=== PATIENT | male | born 1935 | race Caucasian/White ===

== ENCOUNTER 2020-07-21 05:43 | Emergency (ER) | payer MEDICARE, BC ==
[2020-07-21] MEDS ORDERED: fentaNYL 100 MCG/2 ML SDV IVPUSH ONE (07:11)
--- NOTE | 2020-07-21 07:16 | EDM.PDOC ---
ED HPI GENERAL MEDICAL PROBLEM - General Chief Complaint: General Stated Complaint: FALL VIA NORTH Time Seen by Provider: 07/21/20 07:07 Source of Information: Reports: Patient, Provider, RN Notes Reviewed History Limitations: Reports: No Limitations - History of Present Illness INITIAL COMMENTS - FREE TEXT/NARRATIVE: 85-year-old gentleman presents emergency department day via EMS he is a resident of [facility] facility fell while going to the bathroom with up hitting his head he is anticoagulated he is complaining of headache he has abrasions on his left wrist and right knee denies any loss of consciousness no nausea or vomiting Left Hand Pain Score (Numeric/FACES): 8 - Related Data Allergies Allergy/AdvReac Type Severity Reaction Status Date / Time bisacodyl [From PEG-Prep] Allergy Swelling Verified 07/21/20 06:00 hydrocortisone Allergy Syncope Verified 07/21/20 06:00 lisinopril Allergy Swelling Verified 07/21/20 05:58 methylprednisolone Allergy Cannot Verified 07/21/20 06:00 [From Depo-Medrol] Remember polyethylene glycol 3350 Allergy Swelling Verified 07/21/20 06:00 [From PEG-Prep] potassium chloride Allergy Swelling Verified 07/21/20 06:00 [From PEG-Prep] sodium bicarbonate Allergy Swelling Verified 07/21/20 06:00 [From PEG-Prep] sodium chloride Allergy Swelling Verified 07/21/20 06:00 [From PEG-Prep] Home Meds: Home Meds Acetaminophen [Tylenol] 650 mg PO Q4H PRN 07/21/20 [History] Acetaminophen/oxyCODONE [Percocet 325-5 MG] 1 tab PO Q6H PRN 07/21/20 [History] Albuterol [Proventil Neb Soln] 2.5 mg .XX Q4H PRN 07/21/20 [History] Calcium Carbonate/Vitamin D3 [Calcium Carbonate/Vitamin D 600 MG-200 Unit] 1 tab PO DAILY 07/21/20 [History] Docusate Sodium [Colace] 100 mg PO BID 07/21/20 [History] FLUoxetine [PROzac] 10 mg PO DAILY 07/21/20 [History] Insulin Glarg,Human.Rec.Analog [Lantus Solostar] 12 units SQ BEDTIME 07/21/20 [History] Insulin Lispro [Humalog] 2 unit SQ QID 07/21/20 [History] Isosorbide Mononitrate [Imdur] 60 mg PO DAILY 07/21/20 [History] Ketoconazole [Ketoconazole 2%] 1 applic TOP BID 07/21/20 [History] Latanoprost [Xalatan] 1 drop TOP BEDTIME 07/21/20 [History] Loperamide [Imodium] 2 mg PO Q6H PRN 07/21/20 [History] Magnesium Hydroxide [Milk of Magnesia] 30 mg PO ASDIRECTED PRN 07/21/20 [History] Nitroglycerin 0.4 mg PO ASDIRECTED PRN 07/21/20 [History] Nystatin [Mycostatin] 5 ml PO BID 07/21/20 [History] Nystatin [Nyamyc] 1 dose TOP ASDIRECTED 07/21/20 [History] Pantoprazole [ProTONIX] 40 mg PO DAILY 07/21/20 [History] Simvastatin 40 mg PO BEDTIME 07/21/20 [History] Torsemide 20 mg PO DAILY 07/21/20 [History] Warfarin [Coumadin] 0 mg PO DAILY 07/21/20 [History] carvediloL [Carvedilol] 25 mg PO BID 07/21/20 [History] polyethylene glycoL 3350 [Polyethylene Glycol 3350] 1 dose PO DAILY PRN 07/21/20 [History] rOPINIRole [Requip] 0.5 mg PO BID 07/21/20 [History] Past Medical History HEENT History: Reports: Impaired Vision Cardiovascular History: Reports: Afib, Heart Murmur, High Cholesterol, Hypertension, Other (See Below) Other Cardiovascular History: atherosclerosis PVD Gastrointestinal History: Reports: Other (See Below) Other Gastrointestinal History: gastritis esophageal stricture Genitourinary History: Reports: Prostate Disorder, Renal Disease Musculoskeletal History: Reports: Gout, Osteoarthritis Neurological History: Reports: Parkinson's, Other (See Below) Other Neuro History: polyneuropathy mild cognitive impairment. Endocrine/Metabolic History: Reports: Diabetes, Type II, Other (See Below) Other Endocrine/Metabolic History: parkinsonism Oncologic (Cancer) History: Reports: Prostate, Renal - Past Surgical History HEENT Surgical History: Reports: Cataract Surgery Cardiovascular Surgical History: Reports: Vascular Surgery, Other (See Below) GI Surgical History: Reports: Appendectomy, Other (See Below) Other GI Surgeries/Procedures: heart stint Male Surgical History: Reports: Nephrectomy, Other (See Below) Other Male Surgeries/Procedures: Kidney CA l kidney removed prostate CA prostate removed Dermatological Surgical History: Reports: Other (See Below) Social & Family History - Tobacco Use Tobacco Use Status *Q: Never Tobacco User Second Hand Smoke Exposure: No - Caffeine Use Caffeine Use: Reports: None - Alcohol Use Days Per Week of Alcohol Use: 1 Number of Drinks Per Day: 1 Total Drinks Per Week: 1 - Recreational Drug Use Recreational Drug Use: No ED ROS GENERAL - Review of Systems Review Of Systems: See Below Constitutional: Reports: No Symptoms HEENT: Reports: Other (Facial trauma) Respiratory: Reports: No Symptoms Cardiovascular: Reports: No Symptoms GI/Abdominal: Reports: No Symptoms : Reports: No Symptoms Musculoskeletal: Reports: No Symptoms Skin: Reports: Wound ED EXAM, GENERAL - Physical Exam Exam: See Below Free Text/Narrative:: Primary survey GCS 15 airways open patent and clear lungs are clear to auscultation bilaterally cardiovascular demonstrates regular rate and rhythm S1- S2 Secondary survey general: Elderly male GCS 15, alert and oriented x3 HEENT: head is bruising small lacerations appreciated forehead nose normocephalic, eyes pupils equal round reactive to light, sclera clear no conjunctivitis appreciated extraocular eye movements intact. Ears tympanic membranes clear and moses landmarks and light reflex are present bilaterally canals are clear. Nose no septal deviation, nares are clear, no blood present. Mouth mucosa is moist and pink no erythema or exudate noted in soft palate, tongue is midline uvula is midline, dentition is intact. Neck: Cervical collar in place Lungs: clear to auscultation bilaterally with symmetrical respirations, no adventitious noise appreciated. CV: Regular rate and rhythm S1 and S2 appreciated no murmurs rubs or gallops noted. Abdomen: Soft, nontender, no palpable masses or organomegaly appreciated, no distention no guarding bowel sounds are present, [scars ]. Neuro: Cranial nerves II through XII grossly intact Skin: Abrasion is appreciated on the right knee there is a skin tear noted on the left wrist, small wound with laceration right forehead small laceration right side of nose Extremities: No lower extremity edema appreciated, no tenderness pelvic rocks knees ankles bilaterally, shoulders elbows bilaterally, there is some tenderness to the left wrist right wrist is nontender. Exam Limited By: No Limitations General Appearance: Alert, WD/WN, No Apparent Distress ED GENERAL MEDICAL PROCEDURES - Laceration/Wound Repair Face Lac/wound length in cm: 0.5 Appearance: Superficial Distal NVT: Neuro & Vascular Intact, No Tendon Injury Skin Prep: Saline Saline irrigation (cc's): 20 Exploration/Debridement/Repair: Wound Explored, In a Bloodless Field, Explored to Base Closed with: Dermabond Sterile Dressing Applied: None Tetanus Status Addressed: Yes Complications: No Nose Lac/wound length in cm: 0.5 Appearance: Superficial Distal NVT: Neuro & Vascular Intact, No Tendon Injury Saline irrigation (cc's): 30 Exploration/Debridement/Repair: Wound Explored, In a Bloodless Field, Explored to Base Closed with: Dermabond Sterile Dressing Applied: None Tetanus Status Addressed: Yes Complications: No Course - Vital Signs Last Recorded V/S: Last Vital Signs Temp 97 F 07/21/20 05:51 Pulse 72 07/21/20 08:27 Resp 16 07/21/20 07:57 BP 92/63 07/21/20 08:29 Pulse Ox 97 07/21/20 07:57 - Orders/Labs/Meds Orders: Active Orders 24 hr Category Date Time Status Vaccines to be Administered [RC] PER UNIT ROUTINE Care 07/21/20 08:09 Active Sodium Chloride 0.9% [Normal Saline] 1,000 ml Med 07/21/20 08:30 Active IV ASDIRECTED Medication Orders Sodium Chloride (Normal Saline) 1,000 mls @ 500 mls/hr IV ASDIRECTED GRACY Last Admin: 07/21/20 08:43 Dose: 500 mls/hr Documented by: YANI Labs: Laboratory Tests 07/21/20 07/21/20 07/21/20 Range/Units 06:42 06:42 06:42 WBC 9.0 (4.5-11.0) K/uL RBC 5.02 (4.30-5.90) M/uL Hgb 14.3 (12.0-15.0) g/dL Hct 44.3 (40.0-54.0) % MCV 88 (80-98) fL MCH 29 (27-31) pg MCHC 32 (32-36) % Plt Count 226 (150-400) K/uL Neut % (Auto) 78 H (36-66) % Lymph % (Auto) 12 L (24-44) % [place] % (Auto) 7 H (2-6) % Eos % (Auto) 2 (2-4) % Baso % (Auto) 0 (0-1) % PT 34.8 H (9.5-12.0) sec INR 3.27 H (0.80-1.20) APTT 37.2 H (27.0-36.0) sec Sodium 149 H (140-148) mmol/L Potassium 3.4 L (3.6-5.2) mmol/L Chloride 106 (100-108) mmol/L Carbon Dioxide 30 (21-32) mmol/L Anion Gap 16.4 H (5.0-14.0) mmol/L BUN 47 H (7-18) mg/dL Creatinine 2.5 H (0.8-1.3) mg/dL Est Cr Clr Drug Dosing 23.52 mL/min Estimated GFR (MDRD) 25 L (>60) Glucose 146 H (74-106) mg/dL Calcium 9.0 (8.5-10.1) mg/dL Total Bilirubin 0.8 (0.2-1.0) mg/dL AST 24 (15-37) U/L ALT 36 (12-78) U/L Alkaline Phosphatase 155 H (46-116) U/L Total Protein 6.6 (6.4-8.2) g/dL Albumin 3.3 L (3.4-5.0) g/dL Globulin 3.3 (2.3-3.5) g/dL Albumin/Globulin Ratio 1.0 L (1.2-2.2) Meds: Medications Generic Name Dose Route Start Last Admin Trade Name Freq PRN Reason Stop Dose Admin Sodium Chloride 1,000 mls @ 500 mls/hr 07/21/20 08:30 07/21/20 08:43 Normal Saline IV 500 mls/hr ASDIRECTED GRACY Administration Discontinued Medications Generic Name Dose Route Start Last Admin Trade Name Freq PRN Reason Stop Dose Admin Bacitracin 1 dose 07/21/20 07:57 07/21/20 08:05 Bacitracin Oint 1 Gm U/D Packet TOP 07/21/20 07:58 1 dose ONETIME ONE Administration Diphtheria/Tetanus/Acell Pertussis 0.5 ml 07/21/20 08:09 07/21/20 08:43 Diphtheria,Pertussis(Acell),Tetanus Vaccine 0.5 Ml Syringe IM 07/21/20 08:10 0.5 ml .ONCE ONE Administration Fentanyl 50 mcg 07/21/20 07:11 07/21/20 07:50 Fentanyl 100 Mcg/2 Ml Sdv IVPUSH 07/21/20 07:12 50 mcg ONETIME ONE Administration Departure - Departure Time of Disposition: 09:53 Disposition: DC/Tfer to [facility] Condition: Fair Clinical Impression: Head injury Qualifiers: Encounter type: initial encounter Qualified Code(s): S09.90XA - Unspecified injury of head, initial encounter - Discharge Information Instructions: Head Injury, Adult Referrals: PCP,None [Primary Care Provider] - Forms: ED Department Discharge Additional Instructions: Continue regular medications, please followup with your primary care provider in 3-5 days if not better, please call return to the emergency department with worsening of symptoms. Sepsis Event Note (ED) - Evaluation Sepsis Screening Result: No Definite Risk - Focused Exam Vital Signs: Vital Signs Temp Pulse Resp BP Pulse Ox 07/21/20 08:29 92/63 07/21/20 08:27 72 81/49 L 07/21/20 07:57 118 H 16 109/62 97 07/21/20 05:51 97 F 76 12 114/69 96 - My Orders Last 24 Hours: My Active Orders 07/21/20 08:09 Vaccines to be Administered [RC] PER UNIT ROUTINE 07/21/20 08:30 Sodium Chloride 0.9% [Normal Saline] 1,000 ml IV ASDIRECTED - Assessment/Plan Last 24 Hours: My Active Orders 07/21/20 08:09 Vaccines to be Administered [RC] PER UNIT ROUTINE 07/21/20 08:30 Sodium Chloride 0.9% [Normal Saline] 1,000 ml IV ASDIRECTED Plan: Assessment Acuity = acute Site and laterality = head injury, superficial lacerations to the face Etiology = fall at home Manifestations = none Location of injury = Home Lab values = CT scan head and neck showed no acute process, CBC unremarkable INR supratherapeutic at 3.27 potassium low 3.4 consistent hypokalemia creatinine elevated 2.5 consistent chronic renal failure stage G4 Plan Plan is to discharge back to senior care follow-up primary care 3 to 5 days if no improvement, he did tolerate a meal and liquids was able to ambulate around the emergency department with the help of a walker. This note was dictated using [employer] voice recognition software please call with any questions on syntax or grammar.
--- NOTE | 2020-07-21 07:34 | CRLCT ---
INDICATION: Fall, head injury TECHNIQUE: CT Head without contrast. COMPARISON: None. FINDINGS: CSF spaces: Within normal limits for age. Brain parenchyma: The moses-white differentiation is normal. No sign of mass, hemorrhage, or midline shift. Skull base and calvarium: The visualized paranasal sinuses and mastoid air cells are clear. The visualized orbits are grossly unremarkable. No skull fractures. IMPRESSION: Unremarkable noncontrast head CT. Please note that all CT scans at this facility use dose modulation, iterative reconstruction, and/or weight-based dosing when appropriate to reduce radiation dose to as low as reasonably achievable. Dictated by: Dieter Rossi MD @ 07/21/2020 07:33:03 (Electronically Signed)
--- NOTE | 2020-07-21 07:38 | CRLCT ---
INDICATION: Fall, head injury. TECHNIQUE: CT cervical spine without contrast. COMPARISON: None FINDINGS: Vertebrae: Alignment is normal. There are no fractures or suspicious bony lesions. Discs and facet joints: There are degenerative disc changes most severe at C4-5, C5-6 and C6-7. There are multilevel degenerative changes in the facets. Extraspinal findings: Paraspinous soft tissues are unremarkable. IMPRESSION: 1. No sign of acute injury. 2. Multilevel degenerative spondylosis. Dictated by Dieter Rossi MD @ 07/21/2020 7:36:00 AM Please note that all CT scans at this facility use dose modulation, iterative reconstruction, and/or weight-based dosing when appropriate to reduce radiation dose to as low as reasonably achievable. Dictated by: Dieter Rossi MD @ 07/21/2020 07:36:10 (Electronically Signed)
[2020-07-21] MEDS ORDERED: Bacitracin Oint 1 GM U/D Packet TOP ONE (07:57)
[2020-07-21] MEDS ORDERED: Diphtheria,Pertussis(Acell),Tetanus Vaccine 0.5 ML Syringe IM ONE (08:09)
[2020-07-21] MEDS ORDERED: Sodium Chloride 0.9% 1,000 ML IV SCH (08:30)
--- NOTE | 2020-07-21 09:42 | CR ---
Knee 3V Rt CLINICAL HISTORY: Pain, fall FINDINGS: No acute fracture or dislocation is noted. There are no osseous lesions. There is moderate joint space narrowing and periarticular patellar spurring. Impression: Moderate osteoarthritis No fracture seen
[2020-07-21] MEDS ORDERED: Acetaminophen/oxyCODONE 325-5 MG Tab PO ONE (11:52)
== END 2020-07-21 12:07 ==
LOC: JP.ED 05:43
DX: S01.21XA Laceration without foreign body of nose, initial encounter (principal); S61.512A Laceration without foreign body of left wrist, initial encounter; S80.211A Abrasion, right knee, initial encounter; S01.81XA Laceration without foreign body of other part of head, initial encounter; S09.90XA Unspecified injury of head, initial encounter; I48.91 Unspecified atrial fibrillation; E78.00 Pure hypercholesterolemia, unspecified; I10 Essential (primary) hypertension; G20 Parkinson's disease; E11.9 Type 2 diabetes mellitus without complications; Z88.8 Allergy status to other drugs, medicaments and biological substances; Z88.5 Allergy status to narcotic agent; Z79.4 Long term (current) use of insulin; Z79.01 Long term (current) use of anticoagulants; Z79.899 Other long term (current) drug therapy; Z23 Encounter for immunization; W22.8XXA Striking against or struck by other objects, initial encounter
CPT/HCPCS: 12011; 36415; 70450; 72125; 73562; 80053; 85025; 85610; 85730; 90471; 90715; 96374; 99284; A9270; J3010; J7030

== ENCOUNTER 2020-07-22 11:11 | Emergency (ER) | payer MEDICARE, BC ==
--- NOTE | 2020-07-22 11:23 | EDM.PDOC ---
ED HPI GENERAL MEDICAL PROBLEM - General Chief Complaint: General Stated Complaint: GENERAL WEAKNESS LOW BLOOD PRESURE Time Seen by Provider: 07/22/20 11:19 Source of Information: Reports: Patient, EMS, Old Records, RN History Limitations: Reports: No Limitations - History of Present Illness INITIAL COMMENTS - FREE TEXT/NARRATIVE: 84 yo male resident of the [facility] was seen here yesterday after a fall. CT scans of his head/neck were negative. He is anticoagulated. He was noted to have low BP that responded to IV fluids. Today is weak and his BP was noted to be low again so he was sent back to the ER via EMS. IV started by EMS en route. Onset: Gradual Duration: Day(s):, Constant Location: Reports: Generalized Quality: Reports: Other (new pain not reported) Severity: Moderate (weakness) Improves with: Reports: Other (? IV fluids) Worsens with: Reports: Other (unsure) Context: Reports: Other (See HPI) Associated Symptoms: Reports: Weakness (generalized). 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 (see below) (See HPI) - Related Data Allergies Allergy/AdvReac Type Severity Reaction Status Date / Time bisacodyl [From PEG-Prep] Allergy Swelling Verified 07/22/20 12:15 hydrocortisone Allergy Syncope Verified 07/22/20 12:15 lisinopril Allergy Swelling Verified 07/22/20 12:15 methylprednisolone Allergy Cannot Verified 07/22/20 12:15 [From Depo-Medrol] Remember polyethylene glycol 3350 Allergy Swelling Verified 07/22/20 12:15 [From PEG-Prep] potassium chloride Allergy Swelling Verified 07/22/20 12:15 [From PEG-Prep] sodium bicarbonate Allergy Swelling Verified 07/22/20 12:15 [From PEG-Prep] sodium chloride Allergy Swelling Verified 07/22/20 12:15 [From PEG-Prep] Home Meds: Home Meds Acetaminophen [Tylenol] 650 mg PO Q4H PRN 07/21/20 [History] Acetaminophen/oxyCODONE [Percocet 325-5 MG] 1 tab PO Q6H PRN 07/21/20 [History] Albuterol [Proventil Neb Soln] 2.5 mg .XX Q4H PRN 07/21/20 [History] Calcium Carbonate/Vitamin D3 [Calcium Carbonate/Vitamin D 600 MG-200 Unit] 1 tab PO DAILY 07/21/20 [History] Docusate Sodium [Colace] 100 mg PO BID 07/21/20 [History] FLUoxetine [PROzac] 10 mg PO DAILY 07/21/20 [History] Insulin Glarg,Human.Rec.Analog [Lantus Solostar] 12 units SQ BEDTIME 07/21/20 [History] Insulin Lispro [Humalog] 2 unit SQ QID 07/21/20 [History] Isosorbide Mononitrate [Imdur] 60 mg PO DAILY 07/21/20 [History] Ketoconazole [Ketoconazole 2%] 1 applic TOP BID 07/21/20 [History] Latanoprost [Xalatan] 1 drop TOP BEDTIME 07/21/20 [History] Loperamide [Imodium] 2 mg PO Q6H PRN 07/21/20 [History] Magnesium Hydroxide [Milk of Magnesia] 30 mg PO ASDIRECTED PRN 07/21/20 [History] Nitroglycerin 0.4 mg PO ASDIRECTED PRN 07/21/20 [History] Nystatin [Mycostatin] 5 ml PO BID 07/21/20 [History] Nystatin [Nyamyc] 1 dose TOP ASDIRECTED 07/21/20 [History] Pantoprazole [ProTONIX] 40 mg PO DAILY 07/21/20 [History] Simvastatin 40 mg PO BEDTIME 07/21/20 [History] Torsemide 20 mg PO DAILY 07/21/20 [History] Warfarin [Coumadin] 0 mg PO DAILY 07/21/20 [History] carvediloL [Carvedilol] 25 mg PO BID 07/21/20 [History] polyethylene glycoL 3350 [Polyethylene Glycol 3350] 1 dose PO DAILY PRN 07/21/20 [History] rOPINIRole [Requip] 0.5 mg PO BID 07/21/20 [History] Past Medical History HEENT History: Reports: Impaired Vision Cardiovascular History: Reports: Afib, Heart Murmur, High Cholesterol, Hypertension, Other (See Below) Other Cardiovascular History: atherosclerosis PVD Gastrointestinal History: Reports: Other (See Below) Other Gastrointestinal History: gastritis esophageal stricture Genitourinary History: Reports: Prostate Disorder, Renal Disease Musculoskeletal History: Reports: Gout, Osteoarthritis Neurological History: Reports: Parkinson's, Other (See Below) Other Neuro History: polyneuropathy mild cognitive impairment. Endocrine/Metabolic History: Reports: Diabetes, Type II, Other (See Below) Other Endocrine/Metabolic History: parkinsonism Oncologic (Cancer) History: Reports: Prostate, Renal - Past Surgical History HEENT Surgical History: Reports: Cataract Surgery Cardiovascular Surgical History: Reports: Vascular Surgery, Other (See Below) GI Surgical History: Reports: Appendectomy, Other (See Below) Other GI Surgeries/Procedures: heart stint Male Surgical History: Reports: Nephrectomy, Other (See Below) Other Male Surgeries/Procedures: Kidney CA l kidney removed prostate CA prostate removed Dermatological Surgical History: Reports: Other (See Below) Social & Family History - Caffeine Use Caffeine Use: Reports: None ED ROS GENERAL - Review of Systems Review Of Systems: See Below Constitutional: Reports: Malaise, Weakness, Fatigue, Decreased Appetite. Denies: Fever HEENT: Reports: No Symptoms Respiratory: Reports: No Symptoms Cardiovascular: Reports: No Symptoms GI/Abdominal: Reports: Diarrhea ( a couple days ago). Denies: Abdominal Pain, Black Stool : Reports: No Symptoms Musculoskeletal: Reports: No Symptoms Skin: Reports: Wound (facial wounds from yesterday's fall) Neurological: Reports: Confusion (not new? ) Psychiatric: Reports: No Symptoms ED EXAM, GENERAL - Physical Exam Exam: See Below Exam Limited By: No Limitations General Appearance: Alert, WD/WN, No Apparent Distress Eye Exam: Bilateral Eye: Normal Inspection Ears: Normal External Exam, Normal Canal, Hearing Grossly Normal, Normal TMs Ear Exam: Bilateral Ear: Auricle Normal, Canal Normal, TM normal Nose: Normal Inspection, No Blood Throat/Mouth: Normal Inspection, Normal Lips, Normal Oropharynx, Normal Voice, No Airway Compromise Head: Atraumatic, Normocephalic Neck: Normal Inspection Respiratory/Chest: No Respiratory Distress, Lungs Clear, Normal Breath Sounds, No Accessory Muscle Use Cardiovascular: Regular Rate, Rhythm, No Edema GI/Abdominal: Normal Bowel Sounds, Soft, Non-Tender, No Distention Back Exam: Normal Inspection. No: CVA Tenderness (R), CVA Tenderness (L) Extremities: Normal Inspection, Normal Range of Motion, Non-Tender, No Pedal Edema Neurological: Alert, Oriented, CN II-XII Intact, Normal Cognition, No Motor/Sensory Deficits Psychiatric: Normal Affect, Normal Mood Skin Exam: Warm, Dry, Intact, Normal Color, No Rash Course - Vital Signs Last Recorded V/S: Last Vital Signs Temp 36.6 C 07/22/20 11:15 Pulse 70 07/22/20 13:51 Resp 16 07/22/20 12:25 BP 97/70 07/22/20 14:21 Pulse Ox 99 07/22/20 13:51 - Orders/Labs/Meds Orders: Active Orders 24 hr Category Date Time Status NS + KCl 20mEq/L [Normal Saline with 20 mEq KCl] 1,000 Med 07/22/20 11:30 Active ml IV ASDIRECTED Medication Orders Potassium Chloride/Sodium Chloride (Normal Saline With 20 Meq Kcl) 1,000 mls @ 500 mls/hr IV ASDIRECTED GRACY Last Admin: 07/22/20 12:33 Dose: 500 mls/hr Documented by: YANI Labs: Laboratory Tests 07/22/20 07/22/20 07/22/20 Range/Units 11:21 11:30 11:30 WBC 8.1 (4.5-11.0) K/uL RBC 4.57 (4.30-5.90) M/uL Hgb 13.0 (12.0-15.0) g/dL Hct 40.3 (40.0-54.0) % MCV 88 (80-98) fL MCH 28 (27-31) pg MCHC 32 (32-36) % Plt Count 213 (150-400) K/uL Sodium 148 (140-148) mmol/L Potassium 3.6 (3.6-5.2) mmol/L Chloride 108 (100-108) mmol/L Carbon Dioxide 28 (21-32) mmol/L Anion Gap 12.3 (5.0-14.0) mmol/L BUN 50 H (7-18) mg/dL Creatinine 2.5 H (0.8-1.3) mg/dL Est Cr Clr Drug Dosing TNP Estimated GFR (MDRD) 25 L (>60) Glucose 118 H (74-106) mg/dL Calcium 9.1 (8.5-10.1) mg/dL Magnesium 1.9 (1.8-2.4) mg/dL Troponin I 0.024 (0.000-0.056) ng/mL Urine Color Yellow (YELLOW) Urine Appearance Clear (CLEAR) Urine pH 5.5 (5.0-8.0) Ur Specific [place] 1.015 (1.008-1.030) Urine Protein Negative (NEGATIVE) mg/dL Urine Glucose (UA) Negative (NEGATIVE) mg/dL Urine Ketones Negative (NEGATIVE) mg/dL Urine Occult Blood Negative (NEGATIVE) Urine Nitrite Negative (NEGATIVE) Urine Bilirubin Negative (NEGATIVE) Urine Urobilinogen 0.2 (0.2-1.0) EU/dL Ur Leukocyte Esterase Trace H (NEGATIVE) Urine RBC Not seen (0-5) Urine WBC 0-5 (0-5) Ur Epithelial Cells Rare Amorphous Sediment Rare Urine Bacteria Rare Urine Mucus Not seen Meds: Medications Generic Name Dose Route Start Last Admin Trade Name Freq PRN Reason Stop Dose Admin Potassium Chloride/Sodium Chloride 1,000 mls @ 500 mls/hr 07/22/20 11:30 07/22/20 12:33 Normal Saline With 20 Meq Kcl IV 500 mls/hr ASDIRECTED GRACY Administration Discontinued Medications Generic Name Dose Route Start Last Admin Trade Name Freq PRN Reason Stop Dose Admin Lactated Ringer's 1,000 mls @ 1,000 mls/hr 07/22/20 12:10 07/22/20 14:15 Ringers, Lactated IV 07/22/20 13:09 1,000 mls/hr BOLUS ONE Administration - Re-Assessments/Exams Free Text/Narrative Re-Assessment/Exam: 07/22/20 15:00 Doing better after tx here in the ER. No hospital beds available. His assisted living is working on getting him a [facility] bed. Departure - Departure Time of Disposition: 15:01 Disposition: Home, Self-Care 01 Condition: Fair Clinical Impression: Weakness, Mild dehydration CRF (chronic renal failure) Qualifiers: Chronic kidney disease stage: stage 4 (severe) Qualified Code(s): N18.4 - Chronic kidney disease, stage 4 (severe) - Discharge Information *PRESCRIPTION DRUG MONITORING PROGRAM REVIEWED*: Not Applicable *COPY OF PRESCRIPTION DRUG MONITORING REPORT IN PATIENT MARRY: Not Applicable Referrals: PCP,None [Primary Care Provider] - Forms: ED Department Discharge Additional Instructions: Continue working on a [facility] bed for Perez. F/U with primary care provider yunior. Needs supervision to prevent falling. Sepsis Event Note (ED) - Focused Exam Vital Signs: Vital Signs Temp Pulse Resp BP Pulse Ox 07/22/20 14:21 97/70 07/22/20 13:51 70 116/76 99 07/22/20 13:21 63 121/68 99 07/22/20 12:51 58 L 117/66 99 07/22/20 12:25 67 16 108/60 98 07/22/20 11:15 36.6 C 67 16 113/59 L 99 - My Orders Last 24 Hours: My Active Orders 07/22/20 11:30 NS + KCl 20mEq/L [Normal Saline with 20 mEq KCl] 1,000 ml IV ASDIRECTED - Assessment/Plan Last 24 Hours: My Active Orders 07/22/20 11:30 NS + KCl 20mEq/L [Normal Saline with 20 mEq KCl] 1,000 ml IV ASDIRECTED
[2020-07-22] MEDS ORDERED: NS + KCl 20mEq/L 1,000 ML IV SCH (11:30)
[2020-07-22] MEDS ORDERED: Lactated Ringers 1,000 ML IV ONE (12:10)
== END 2020-07-22 16:04 | disposition home or self-care (01) ==
LOC: JP.ED 11:11
DX: I12.9 Hypertensive chronic kidney disease with stage 1 through stage 4 chronic kidney disease, or unspecified chronic kidney disease (principal); N18.4 Chronic kidney disease, stage 4 (severe); E86.0 Dehydration; I48.91 Unspecified atrial fibrillation; E78.00 Pure hypercholesterolemia, unspecified; G20 Parkinson's disease; Z88.8 Allergy status to other drugs, medicaments and biological substances; Z79.01 Long term (current) use of anticoagulants; Z79.4 Long term (current) use of insulin; Z79.899 Other long term (current) drug therapy; E11.51 Type 2 diabetes mellitus with diabetic peripheral angiopathy without gangrene
CPT/HCPCS: 36415; 80048; 81001; 83735; 84484; 85027; 99284; J3480; J7120

== ENCOUNTER 2020-07-23 14:13 | Inpatient (IN) | payer MEDICARE, BC ==
--- NOTE | 2020-07-23 15:05 | EDM.PDOC ---
ED HPI GENERAL MEDICAL PROBLEM - General Chief Complaint: Diabetic Complaint Stated Complaint: BLOOD SUGAR/LETHARGY Time Seen by Provider: 07/23/20 15:05 Source of Information: Reports: Family, Old Records, RN History Limitations: Reports: No Limitations - History of Present Illness INITIAL COMMENTS - FREE TEXT/NARRATIVE: 84 yo male here due to weakness and confusion(worse at night). Was here the last couple of days for mainly the same with mild dehydration. He was in a [facility] in [place] for several months until he finally made it home in May of this year. He made it at home only a short period of time and then got admitted locally to an assisted living facility. His family is trying to get him into a [facility] now as he is not doing well. Choked on his food last night. Is a very high fall risk. Was supposed to have an H&P today and then get admitted to [facility] locally, but now they won't have time to do his PE. Family brought him back to the ER out of frustration because he is failing at the assisted living facility. No real new sx's today over yesterday. Onset: Gradual Duration: Day(s):, Getting Worse Location: Reports: Generalized Quality: Reports: Other (pain not reported) Severity: Moderate Improves with: Reports: Other (some improvement yesterday with IV hydration. ) Worsens with: Reports: Other (time) Context: Reports: Other (failing in general with progressively worse confusion. ) Associated Symptoms: Reports: Confusion, Loss of Appetite, Malaise. Denies: Chest Pain, Cough, Fever/Chills, Nausea/Vomiting, Rash, Shortness of Breath Treatments CORPORATE RELATIONS MANAGER: Reports: Other (see below) (IV fluids yesterday. ) - Related Data Allergies Allergy/AdvReac Type Severity Reaction Status Date / Time hydrocortisone Allergy Severe Syncope Verified 07/23/20 14:39 polyethylene glycol 3350 Allergy Severe Swelling Verified 07/23/20 14:39 [From PEG-Prep] bisacodyl [From PEG-Prep] Allergy Intermediate Swelling Verified 07/23/20 14:39 potassium chloride Allergy Intermediate Swelling Verified 07/23/20 14:39 [From PEG-Prep] sodium bicarbonate Allergy Intermediate Swelling Verified 07/23/20 14:39 [From PEG-Prep] sodium chloride Allergy Intermediate Swelling Verified 07/23/20 14:39 [From PEG-Prep] methylprednisolone Allergy Unknown Cannot Verified 07/23/20 14:39 [From Depo-Medrol] Remember lisinopril Allergy Swelling Verified 07/23/20 14:39 Home Meds: Home Meds Acetaminophen [Tylenol] 650 mg PO Q4H PRN 07/21/20 [History] Acetaminophen/oxyCODONE [Percocet 325-5 MG] 1 tab PO Q6H PRN 07/21/20 [History] Albuterol [Proventil Neb Soln] 2.5 mg .XX Q4H PRN 07/21/20 [History] Docusate Sodium [Colace] 100 mg PO BID PRN 07/21/20 [History] FLUoxetine [PROzac] 10 mg PO DAILY 07/21/20 [History] Insulin Glarg,Human.Rec.Analog [Lantus Solostar] 12 units SQ BEDTIME 07/21/20 [History] Insulin Lispro [Humalog] 2 unit SQ QID 07/21/20 [History] Ketoconazole [Ketoconazole 2%] 1 applic TOP BID 07/21/20 [History] Latanoprost [Xalatan] 1 drop TOP BEDTIME 07/21/20 [History] Loperamide [Imodium] 2 mg PO Q6H PRN 07/21/20 [History] Magnesium Hydroxide [Milk of Magnesia] 30 mg PO ASDIRECTED PRN 07/21/20 [History] Nitroglycerin 0.4 mg PO ASDIRECTED PRN 07/21/20 [History] Nystatin [Nyamyc] 1 dose TOP ASDIRECTED PRN 07/21/20 [History] Simvastatin 40 mg PO BEDTIME 07/21/20 [History] Torsemide 30 mg PO DAILY 07/21/20 [History] Warfarin [Coumadin] 0 mg PO DAILY 07/21/20 [History] carvediloL [Carvedilol] 25 mg PO BID 07/21/20 [History] polyethylene glycoL 3350 [Polyethylene Glycol 3350] 1 dose PO DAILY PRN 07/21/20 [History] rOPINIRole [Requip] 0.5 mg PO BID 07/21/20 [History] Simvastatin 40 mg PO BEDTIME 07/23/20 [History] Past Medical History HEENT History: Reports: Impaired Vision Cardiovascular History: Reports: Afib, Heart Murmur, High Cholesterol, Hypertension, Pacemaker, Stents, Other (See Below) Other Cardiovascular History: atherosclerosis PVD Gastrointestinal History: Reports: Other (See Below) Other Gastrointestinal History: gastritis esophageal stricture Genitourinary History: Reports: Prostate Disorder, Renal Disease Musculoskeletal History: Reports: Gout, Osteoarthritis Neurological History: Reports: Parkinson's, Other (See Below) Other Neuro History: polyneuropathy mild cognitive impairment. Psychiatric History: Reports: Dementia, Depression Endocrine/Metabolic History: Reports: Diabetes, Type II, Other (See Below) Other Endocrine/Metabolic History: parkinsonism Oncologic (Cancer) History: Reports: Prostate, Renal - Infectious Disease History Infectious Disease History: Reports: Chicken Pox, Measles - Past Surgical History HEENT Surgical History: Reports: Cataract Surgery Cardiovascular Surgical History: Reports: Vascular Surgery, Other (See Below) GI Surgical History: Reports: Appendectomy, Other (See Below) Other GI Surgeries/Procedures: heart stint Male Surgical History: Reports: Nephrectomy, Prostatectomy, Other (See Below) Other Male Surgeries/Procedures: Kidney CA l kidney removed prostate CA prostate removed Musculoskeletal Surgical History: Reports: Knee Replacement Dermatological Surgical History: Reports: Other (See Below) Social & Family History - Tobacco Use Tobacco Use Status *Q: Never Tobacco User - Caffeine Use Caffeine Use: Reports: None - Recreational Drug Use Recreational Drug Use: No ED ROS GENERAL - Review of Systems Review Of Systems: See Below Constitutional: Reports: Malaise, Weakness (generalized) HEENT: Reports: No Symptoms Respiratory: Denies: Shortness of Breath Cardiovascular: Reports: No Symptoms Endocrine: Reports: Low Glucose (last night) GI/Abdominal: Reports: Nausea : Reports: Other (strong odor) Musculoskeletal: Reports: No Symptoms Skin: Reports: No Symptoms (nothing new) Neurological: Reports: Confusion (progressively worse, not sudden onset) ED EXAM GENERAL NO PERIP PULSE - Physical Exam Exam: See Below Exam Limited By: No Limitations General Appearance: Alert, WD/WN, No Apparent Distress Eye Exam: Bilateral Eye: Normal Inspection Ears: Normal External Exam, Normal Canal, Hearing Grossly Normal, Normal TMs Nose: Normal Inspection, No Blood Throat/Mouth: Normal Inspection, Normal Lips, Normal Oropharynx, Normal Voice, No Airway Compromise Head: Atraumatic, Normocephalic Neck: Normal Inspection Respiratory/Chest: No Respiratory Distress, Lungs Clear, Normal Breath Sounds, No Accessory Muscle Use Cardiovascular: Regular Rate, Rhythm, No Edema GI/Abdominal: Normal Bowel Sounds, Soft, Non-Tender, No Distention Back Exam: Normal Inspection. No: CVA Tenderness (R), CVA Tenderness (L) Extremities: Normal Inspection, Normal Range of Motion, Non-Tender, No Pedal Edema Neurological: Alert, Oriented, CN II-XII Intact, Normal Cognition, No Motor/Sensory Deficits Psychiatric: Normal Mood, Flat Affect Skin Exam: Warm, Dry, Intact, No Rash, Other (skin staining of shins of both legs, chronic) Course - Vital Signs Text/Narrative:: Dr. Valladares called @ 2404. Last Recorded V/S: Last Vital Signs Temp 36.6 C 07/23/20 15:02 Pulse 80 07/23/20 15:43 Resp 16 07/23/20 15:02 BP 110/56 L 07/23/20 15:43 Pulse Ox 96 07/23/20 15:43 - Orders/Labs/Meds Orders: Active Orders 24 hr Category Date Time Status Lactated Ringers [Ringers, Lactated] 1,000 ml Med 07/23/20 16:29 Ordered IV BOLUS Medication Orders Lactated Ringer's (Ringers, Lactated) 1,000 mls @ 1,000 mls/hr IV BOLUS ONE Stop: 07/23/20 17:28 Labs: Laboratory Tests 07/23/20 07/23/20 07/23/20 Range/Units 15:00 15:00 15:00 WBC 8.1 (4.5-11.0) K/uL RBC 4.29 L (4.30-5.90) M/uL Hgb 12.2 (12.0-15.0) g/dL Hct 37.9 L (40.0-54.0) % MCV 88 (80-98) fL MCH 28 (27-31) pg MCHC 32 (32-36) % Plt Count 209 (150-400) K/uL Sodium 148 (140-148) mmol/L Potassium 3.9 (3.6-5.2) mmol/L Chloride 109 H (100-108) mmol/L Carbon Dioxide 28 (21-32) mmol/L Anion Gap 14.9 H (5.0-14.0) mmol/L BUN 50 H (7-18) mg/dL Creatinine 2.6 H (0.8-1.3) mg/dL Est Cr Clr Drug Dosing 22.62 mL/min Estimated GFR (MDRD) 24 L (>60) Glucose 168 H (74-106) mg/dL Calcium 9.0 (8.5-10.1) mg/dL Troponin I < 0.017 (0.000-0.056) ng/mL Urine Color (YELLOW) Urine Appearance (CLEAR) Urine pH (5.0-8.0) Ur Specific Morris (1.008-1.030) Urine Protein (NEGATIVE) mg/dL Urine Glucose (UA) (NEGATIVE) mg/dL Urine Ketones (NEGATIVE) mg/dL Urine Occult Blood (NEGATIVE) Urine Nitrite (NEGATIVE) Urine Bilirubin (NEGATIVE) Urine Urobilinogen (0.2-1.0) EU/dL Ur Leukocyte Esterase (NEGATIVE) Urine RBC (0-5) Urine WBC (0-5) Ur Epithelial Cells Amorphous Sediment Urine Bacteria Urine Mucus 07/23/20 Range/Units 16:03 WBC (4.5-11.0) K/uL RBC (4.30-5.90) M/uL Hgb (12.0-15.0) g/dL Hct (40.0-54.0) % MCV (80-98) fL MCH (27-31) pg MCHC (32-36) % Plt Count (150-400) K/uL Sodium (140-148) mmol/L Potassium (3.6-5.2) mmol/L Chloride (100-108) mmol/L Carbon Dioxide (21-32) mmol/L Anion Gap (5.0-14.0) mmol/L BUN (7-18) mg/dL Creatinine (0.8-1.3) mg/dL Est Cr Clr Drug Dosing mL/min Estimated GFR (MDRD) (>60) Glucose (74-106) mg/dL Calcium (8.5-10.1) mg/dL Troponin I (0.000-0.056) ng/mL Urine Color Yellow (YELLOW) Urine Appearance Slightly cloudy A (CLEAR) Urine pH 5.0 (5.0-8.0) Ur Specific Morris 1.015 (1.008-1.030) Urine Protein Negative (NEGATIVE) mg/dL Urine Glucose (UA) Negative (NEGATIVE) mg/dL Urine Ketones Negative (NEGATIVE) mg/dL Urine Occult Blood Trace-intact H (NEGATIVE) Urine Nitrite Negative (NEGATIVE) Urine Bilirubin Negative (NEGATIVE) Urine Urobilinogen 0.2 (0.2-1.0) EU/dL Ur Leukocyte Esterase Small H (NEGATIVE) Urine RBC 0-5 (0-5) Urine WBC 0-5 (0-5) Ur Epithelial Cells Rare Amorphous Sediment Few Urine Bacteria Moderate Urine Mucus Rare Meds: Medications Generic Name Dose Route Start Last Admin Trade Name Freyelena PRN Reason Stop Dose Admin Lactated Ringer's 1,000 mls @ 1,000 mls/hr 07/23/20 16:29 Ringers, Lactated IV 07/23/20 17:28 BOLUS ONE Departure - Departure Time of Disposition: 16:45 Disposition: Refer to Observation Condition: Fair Clinical Impression: Generalized weakness CRF (chronic renal failure) Qualifiers: Chronic kidney disease stage: stage 4 (severe) Qualified Code(s): N18.4 - Chronic kidney disease, stage 4 (severe) - Discharge Information *PRESCRIPTION DRUG MONITORING PROGRAM REVIEWED*: Not Applicable *COPY OF PRESCRIPTION DRUG MONITORING REPORT IN PATIENT MARRY: Not Applicable Referrals: Em Boudreaux DO [Primary Care Provider] - Forms: ED Department Discharge Sepsis Event Note (ED) - Evaluation Sepsis Screening Result: No Definite Risk - Focused Exam Vital Signs: Vital Signs Temp Pulse Resp BP Pulse Ox 07/23/20 15:43 80 110/56 L 96 07/23/20 15:02 36.6 C 78 16 111/58 L 96 07/23/20 14:37 36.6 C 78 16 120/63 98 - My Orders Last 24 Hours: My Active Orders 07/23/20 16:29 Lactated Ringers [Ringers, Lactated] 1,000 ml IV BOLUS - Assessment/Plan Last 24 Hours: My Active Orders 07/23/20 16:29 Lactated Ringers [Ringers, Lactated] 1,000 ml IV BOLUS
[2020-07-23] MEDS ORDERED: Lactated Ringers 1,000 ML IV ONE (16:29)
[2020-07-23] MEDS ORDERED: Acetaminophen/oxyCODONE 325-5 MG Tab PO PRN (16:41)
[2020-07-23] MEDS ORDERED: Glucagon,Human Recombinant 1 MG Vial IM PRN (16:41)
[2020-07-23] MEDS ORDERED: 50% Dextrose in Water 50 ML Syringe IVPUSH PRN (16:41)
[2020-07-23] MEDS ORDERED: Polyethylene Glycol 3350 Powder 119 GM Bottle PO PRN (16:41)
[2020-07-23] MEDS ORDERED: Ondansetron 4 MG/2 ML SDV IV PRN (17:01)
[2020-07-23] MEDS ORDERED: Sodium Chloride 0.9% 10 ML Syringe FLUSH PRN (17:01)
[2020-07-23] MEDS ORDERED: Acetaminophen 325 MG Tab PO PRN (17:01)
--- NOTE | 2020-07-23 17:12 | PCM.SN.2 ---
- Free Text/Narrative Note: START OF DOCTOR EMAMIS HISTORY AND PHYSICAL / CONSULTATION NOTE Chief Complaint: Generalized weakness and falls History of Present Illness: The patient is an 84-year-old male who presents chief complaint of weakness. This is the patient's third presentation to the emergency department this week. Approximately 2 days prior to presentation he had a fall with subsequent head trauma. Approximately 24 hours prior to this presentation it was noted that he was encephalopathic. The patient's family indicates that they have attempted to place him in a prison but there have been delays. The patient denies fever, rigors, nausea, vomiting, cough, wheeze, abdominal pain, diarrhea, chest pain, dyspnea. He presents for further evaluation Surgical History: Appendectomy, adenoidectomy, tonsillectomy, left knee surgery, cardiac stent placement, prostatectomy, pacemaker placement, bilateral cataract surgery, nephrectomyside unspecified, bilateral lower extremity vascular bypass Family History: Cancer, stroke, diabetes, hypertension, hyperlipidemia Social History: Tobacco: Methylprednisone, hydrocortisone Alcohol: Occasional Caffeine: Denies Drugs: Never Allergies: . The following are listed in his medical record however he is uncertain: Bisacodyl, potassium, sodium bicarbonate, sodium chloride, lisinopril. MiraLAX is listed as an allergy however he takes is currently at home Code Status: Full Pertinent Laboratory Results / Pertinent Radiology Results / Pertinent D iagnostic Results / Pertinent Vital Signs: Blood pressure 101/59, pulse 70, respirations 16, temperature 98 degrees, 98% room air, creatinine 2.6 Physical Examination: General: -Alert -No acute distress -No dyspnea -No tachypnea Head: -Atraumatic with the exception of purpura in the right periorbital region -Normocephalic Eyes: -Pupils equally round and reactive to light and accommodation -Extraocular muscles intact Neurological: -Cranial nerves II-XII intact Neck: -No jugular venous distention -No thyromegaly -No cervical lymphadenopathy Heart: -Regular rate -iRegular rhythm -No murmurs -No gallops -No rubs Lungs: -No wheeze -No rhonchi -No rales Abdomen: -Normal bowel sounds in all four quadrants -No rebound -No guarding -No tenderness Extremities: -2/4 pulse in all four extremities -No clubbing -No cyanosis -Bipedal edema present -No calf tenderness present bilaterally -Negative Homans sign bilaterally Musculoskeletal: -5/5 bilateral upper extremity strength -5/5 bilateral lower extremity strength -Sensorium of bilateral upper extremities are equal and intact -Sensorium of bilateral lower extremities are equal and intact Additional Details / Additional Findings / Exceptions / Miscellaneous: Assessment / Plan: Generalized weakness. Check TSH, free T4, B12, folate level, magnesium level. IV normal saline 50 mils per hour. PT eval pending. OT eval pending. I request case management evaluate the patient for placement Glaucoma. Latanoprost 0.005% 1 drop in both eyes nightly Depression. Prozac 10 mg p.o. daily Constipation. MiraLAX 17 g p.o. daily Chronic pain Chronic kidney disease. Uncertain baseline creatinine. Will monitor creatinine level intermittently. IV normal saline at 50 mL's per hour Parkinsonism History of atrial fibrillation, status post pacemaker placement. Coreg 25 mg p.o. twice daily. Will monitor PT/INR periodically and if/when within normal limits, I will resume his home dose/frequency of Coumadin Congestive heart failure. Coreg 25 mg p.o. twice daily Coronary artery disease, status post stent. Coreg 25 mg p.o. twice daily Po Zocor 40 mg p.o. nightly Diabetes. Will check fingerstick glucose before every meal and at bedtime. Lantus 12 units subcutaneously nightly plus insulin lispro 2 units subcutaneously 4 times daily Hyperlipidemia. Zocor 40 mg p.o. nightly Hypertension. Coreg 25 mg p.o. twice daily Obesity. Patient becomes regarding Diallo modification Restless leg syndrome. Requip 0.5 mg p.o. twice daily Peripheral vascular disease. Zocor 40 mg p.o. nightly Gout Osteoarthritis Neuropathy History of prostate cancer, status post prostatectomy. The patient indicates that he is in remission and is no longer required to be monitored for this medical condition by History of renal cell carcinoma, status post nephrectomysite unspecified. The patient indicates he is in remission and is no longer required to be monitored for this medical condition by DVT prophylaxis. Bilateral SCD Disposition: Anticipate discharge within 24 to 48 hours or 1 patient may be placed by case management/social work END OF DOCTOR EMAMIS HISTORY AND PHYSICAL / CONSULTATION NOTE
[2020-07-23] MEDS ORDERED: Sodium Chloride 0.9% 1,000 ML IV SCH (17:15)
[2020-07-23] MEDS ORDERED: Cholecalciferol (Vitamin D3) 25 MCG Tab PO ONE (18:00)
[2020-07-23] MEDS: Insulin Lispro 100 Unit/ML 3 ML KwikPen SUBCUT SCH ×2 (18:29→22:21)
[2020-07-23] MEDS: rOPINIRole 0.5 MG Tab PO SCH (20:36)
[2020-07-23] MEDS: Carvedilol 12.5 MG Tab PO SCH (20:36)
[2020-07-23] MEDS ORDERED: Insulin Glargine,Human Rec. Analog 100 Units/ML 3 ML Pen SUBCUT SCH (21:00)
[2020-07-23] MEDS ORDERED: Simvastatin 20 MG Tab PO SCH (21:00)
[2020-07-23] MEDS ORDERED: Latanoprost 0.005% Ophth Soln 2.5 ML Bottle EYEBOTH SCH (21:00)
--- NOTE | 2020-07-24 07:29 | PCM.SN.2 ---
- Free Text/Narrative Note: START OF DOCTOR NANCI PROGRESS NOTE Subjective: The patient endorses no complaints at this time. He denies fever, rigors, nausea, vomiting, cough, wheeze, abdominal pain, chest pain, dyspnea, or any other constitutional complaints. I explained to the patient his current medical condition and plan of care and I have answered all of his questions Objective: General: -Alert -No acute distress -No dyspnea -No tachypnea Heart: -Regular rate -iRegular rhythm -No murmurs -No gallops -No rubs Lungs: -No wheeze -No rhonchi -No rales Abdomen: -Normal bowel sounds in all four quadrants -No rebound -No guarding -No tenderness Extremities: -2/4 pulse in all four extremities -No clubbing -No cyanosis -1+ to 2+ bipedal pitting edema present Additional Details / Additional Findings / Exceptions / Miscellaneous: Pertinent Laboratory Results / Pertinent Radiology Results / Pertinent Diagnostic Results / Pertinent Vital Signs: Vital signs stable, INR 6.13, sodium 151, creatinine 2.4 Assessment / Plan: Generalized weakness. IV D5W at 50 mils per hour. I will follow up on physical therapy evaluation, occupational therapy evaluation, and social work/case management evaluation as well for placement Subclinical hyperthyroidism. Outpatient follow-up with endocrinology Coagulopathy. Will monitor PT/INR periodically Hypernatremia. Will monitor sodium levels intermittently. IV D5W at 50 mils per hour Glaucoma. Latanoprost 0.005% 1 drop in both eyes nightly Depression. Prozac 10 mg p.o. daily Constipation. MiraLAX 17 g p.o. daily Chronic pain Chronic kidney disease. Uncertain baseline creatinine. Will monitor creatinine level intermittently. IV D5W at 50 mils per hour Parkinsonism History of atrial fibrillation, status post pacemaker placement. Coreg 25 mg p.o. twice daily. Will monitor PT/INR periodically and if/when within normal limits, I will resume his home dose/frequency of Coumadin Congestive heart failure. Coreg 25 mg p.o. twice daily Coronary artery disease, status post stent. Coreg 25 mg p.o. twice daily Po Zocor 40 mg p.o. nightly Diabetes. Will check fingerstick glucose before every meal and at bedtime. Lantus 12 units subcutaneously nightly plus insulin lispro 2 units subcutaneous ly 4 times daily Hyperlipidemia. Zocor 40 mg p.o. nightly Hypertension. Coreg 25 mg p.o. twice daily Obesity. Patient becomes regarding Diallo modification Restless leg syndrome. Requip 0.5 mg p.o. twice daily Peripheral vascular disease. Zocor 40 mg p.o. nightly Gout Osteoarthritis Neuropathy History of prostate cancer, status post prostatectomy. The patient indicates that he is in remission and is no longer required to be monitored for this medical condition by History of renal cell carcinoma, status post nephrectomysite unspecified. The patient indicates he is in remission and is no longer required to be monitored for this medical condition by DVT prophylaxis. Bilateral SCD Disposition: Patient appears to be medically stable for discharge within 24 hours END OF DOCTOR EMAMIS PROGRESS NOTE
[2020-07-24] MEDS ORDERED: Dextrose 5% in Water 1,000 ML IV SCH (07:30)
[2020-07-24] MEDS ORDERED: Phytonadione 5 MG Tab PO ONE (09:00)
[2020-07-24] MEDS ORDERED: FLUoxetine 10 MG Cap PO SCH (09:00)
[2020-07-24] MEDS: Insulin Lispro 100 Unit/ML 3 ML KwikPen SUBCUT SCH (09:13)
[2020-07-24] MEDS: Carvedilol 12.5 MG Tab PO SCH (09:15)
[2020-07-24] MEDS: rOPINIRole 0.5 MG Tab PO SCH (09:15)
--- NOTE | 2020-07-24 12:58 | PCM.SN.2 ---
- Free Text/Narrative Note: START OF DOCTOR EMAMIS DISCHARGE SUMMARY Date of Admission: July 23, 2020 Date of Discharge: 12:54 PM on July 24, 2020 Primary Diagnosis: Generalized weakness Secondary Diagnosis: Glaucoma Depression Constipation Chronic pain Chronic kidney disease, on known baseline creatinine Parkinsonism History of atrial fibrillation, status post pacemaker placement Congestive heart failure, unknown ejection fraction Coronary artery disease, status post stent Diabetes Hyperlipidemia Hypertension Obesity Restless leg syndrome Peripheral vascular disease Gout Osteoarthritis Neuropathy History of prostate cancer, status post prostatectomy. The patient indicates that he is in remission and is no longer required to be monitored for this medical condition by a doctor History of renal cell carcinoma, status post nephrectomyside unspecified. The patient indicates that he is in remission and is no longer required to be monitored for this medical condition by a doctor Subclinical hyperthyroidism Coagulopathy/supratherapeutic INR Hypernatremia Consultations: None Disposition: The patient will be discharged to senior care in satisfactory condition The patient is advised to follow-up with endocrinology 2 to 4 weeks post discharge for subclinical hyperthyroidism The patient is advised to follow-up with his primary care physician or provider 5 to 7 days post discharge for posthospitalization evaluation The patient is advised to follow-up with nephrology within 2 weeks for his history of chronic kidney disease The patient will require check of PT/INR 2 days post discharge for diagnosis of oagulopathy/supratherapeutic INR Discharge Medications: Prozac 10 mg p.o. daily Insulin glargine 12 units subcutaneously nightly Insulin lispro 25 units subcutaneously 4 times daily Latanoprost 0.005% 1 drop in both eyes nightly Requip 0.5 mg p.o. twice daily Proventil 2.5 mg nebulized every 4 hours as needed shortness of breath or wheeze Nitroglycerin 0.4 mg sublingually every 5 minutes as needed chest pain. If there is no resolution of chest pain after the third dose 911 is to be called Zocor 40 mg p.o. nightly Coreg 25 mg p.o. twice daily Percocet 5/325 mg p.o. every 6 hours as needed pain Patient typically takes Coumadin 4 mg p.o. daily. This is being held at this time. Resumption of Coumadin 4 mg p.o. daily should be resumed once his INR is therapeutic to 3 and a range of 2 and 3 END OF DOCTOR EMAMIS DISCHARGE SUMMARY
== END 2020-07-24 13:18 | DRG 948 ==
LOC: JP.ED 14:13 → JP.MS 17:01
PROVIDERS: ADMIT Internal Medicine; ATTEND Internal Medicine
DX: R53.1 Weakness (principal); N18.4 Chronic kidney disease, stage 4 (severe); I13.0 Hypertensive heart and chronic kidney disease with heart failure and stage 1 through stage 4 chronic kidney disease, or unspecified chronic kidney disease; E87.0 Hyperosmolality and hypernatremia; H40.9 Unspecified glaucoma; F32.9 Major depressive disorder, single episode, unspecified; K59.00 Constipation, unspecified; I73.9 Peripheral vascular disease, unspecified; I70.90 Unspecified atherosclerosis; G89.29 Other chronic pain; G20 Parkinson's disease; I25.10 Atherosclerotic heart disease of native coronary artery without angina pectoris; E78.5 Hyperlipidemia, unspecified; I50.9 Heart failure, unspecified; E66.9 Obesity, unspecified; G25.81 Restless legs syndrome; E11.51 Type 2 diabetes mellitus with diabetic peripheral angiopathy without gangrene; E11.22 Type 2 diabetes mellitus with diabetic chronic kidney disease; M10.9 Gout, unspecified; M19.90 Unspecified osteoarthritis, unspecified site; E11.42 Type 2 diabetes mellitus with diabetic polyneuropathy; E05.90 Thyrotoxicosis, unspecified without thyrotoxic crisis or storm; Z85.46 Personal history of malignant neoplasm of prostate; Z85.528 Personal history of other malignant neoplasm of kidney; H54.7 Unspecified visual loss; I48.91 Unspecified atrial fibrillation; E78.00 Pure hypercholesterolemia, unspecified; Z95.0 Presence of cardiac pacemaker; Z95.5 Presence of coronary angioplasty implant and graft; Z85.51 Personal history of malignant neoplasm of bladder; Z88.8 Allergy status to other drugs, medicaments and biological substances; Z79.01 Long term (current) use of anticoagulants; Z79.4 Long term (current) use of insulin; Z79.899 Other long term (current) drug therapy; Z68.30 Body mass index [BMI] 30.0-30.9, adult
CPT/HCPCS: 36415; 80048; 81001; 82607; 82746; 82947; 83735; 83970; 84100; 84439; 84443; 84484; 85027; 85610; 97110-GP; 97162-GP; 99285; A9270-GY; J1815; J1815-GY; J7030; J7060; J7120